=== PATIENT | female | born 1960 | race Caucasian/White ===

== ENCOUNTER 2018-04-21 12:16 | Emergency (ER) | payer BC ==
[2018-04-21 13:08] VITALS: BP 139/65
--- NOTE | 2018-04-21 13:28 | UC ---
Respiratory Complaint HPI - HPI Summary HPI Summary: Pt c/o URI like symptoms of cough, bronchospasm, nasal congestion and malaise X 2 weeks. Cough worsens in recumbent position. - History of Current Complaint Chief Complaint: UCRespiratory Stated Complaint: COUGH,SORE THROAT Time Seen by Provider: 04/21/18 13:13 Hx Obtained From: Patient ?: No Onset/Duration: Gradual Onset, Lasting Weeks, Still Present Timing: Constant Severity Initially: Mild Severity Currently: Mild Pain Intensity: 0 Character: Cough: Nonproductive Aggravating Factors: Deep Breaths, Recumbent Position Alleviating Factors: Nothing Associated Signs And Symptoms: Positive: URI, Nasal Congestion Related History: Seasonal Allergies - Risk Factors Pulmonary Embolism Risk Factors: Negative Cardiac Risk Factors: Negative Pseudomonas Risk Factors: Negative - Allergies/Home Medications Allergies/Adverse Reactions: Allergies Allergy/AdvReac Type Severity Reaction Status Date / Time No Known Allergies Allergy Verified 04/21/18 13:09 Home Medications: Home Medications Loratadine 10 mg PO DAILY 04/21/18 [History Confirmed 04/21/18] Omeprazole CAP* [Prilosec CAP* 20 MG] 20 mg PO DAILY 04/21/18 [History Confirmed 04/21/18] PMH/Surg Hx/FS Hx/Imm Hx Previously Healthy: Yes - Surgical History Surgical History: None - Social History Occupation: Employed Full-time Lives: With Family Alcohol Use: None Substance Use Type: None Smoking Status (MU): Never Smoked Tobacco Have You Smoked in the Last Year: No Review of Systems Constitutional: Chills, Fatigue Skin: Negative Eyes: Negative ENT: Sinus Congestion Respiratory: Cough Cardiovascular: Negative Gastrointestinal: Negative Genitourinary: Negative Motor: Negative Neurovascular: Negative Musculoskeletal: Negative Neurological: Negative Psychological: Negative Is Patient Immunocompromised?: No All Other Systems Reviewed And Are Negative: Yes Physical Exam Triage Information Reviewed: Yes Appearance: Well-Appearing Vital Signs: Initial Vital Signs Temp 97.6 F 04/21/18 13:03 Pulse 68 04/21/18 13:03 Resp 16 04/21/18 13:03 BP 139/65 04/21/18 13:03 Pulse Ox 98 04/21/18 13:03 Vital Signs Reviewed: Yes Eye Exam: Normal ENT: Positive: Nasal congestion Dental Exam: Normal Neck exam: Normal Respiratory Exam: Other Respiratory: Positive: Normal breath sounds Cardiovascular Exam: Normal Musculoskeletal Exam: Normal Neurological Exam: Normal Psychological Exam: Normal Skin Exam: Normal UC Diagnostic Evaluation - Laboratory O2 Sat by Pulse Oximetry: 98 Respiratory Course/Dx - Differential Dx/Diagnosis Differential Diagnosis/HQI/PQRI: Bronchitis, Influenza Provider Diagnoses: bronchitis Discharge - Sign-Out/Discharge Documenting (check all that apply): Patient Departure All imaging exams completed and their final reports reviewed: No Studies - Discharge Plan Condition: Stable Disposition: HOME Prescriptions: Azithromycin TAB* [Zithromax TAB (Z-THELMA) 250 mg #6 tabs] 2 tab PO .TODAY, THEN 1 DAILY #1 thelma Benzonatate CAP* [Tessalon 100 MG CAP*] 100 mg PO Q8H PRN #30 cap PRN Reason: Cough predniSONE TAB* [Deltasone 20 MG TAB*] 20 mg PO DAILY #4 tab Patient Education Materials: Acute Bronchitis (ED) Forms: *Work Release Referrals: [facility] [Outside] - If Needed No Primary Care Phys,NOPCP [Primary Care Provider] - - Billing Disposition and Condition Condition: STABLE Disposition: Home
== END 2018-04-21 13:34 | disposition home or self-care (01) ==
LOC: UCCORT 12:16
DX: J40 Bronchitis, not specified as acute or chronic (principal)
CPT/HCPCS: 99202; G0463

== ENCOUNTER 2018-12-03 13:59 | Emergency (ER) | payer BC ==
[2018-12-03 14:29] VITALS: BP 139/81
--- NOTE | 2018-12-03 15:00 | UC ---
Knee Pain HPI - HPI Summary HPI Summary: 58 year old female with h/o left knee pain, prior occurence ~ 2 years ago, similar symptoms, seen by Ortho, given hinged knee brace, no imaging, does not know diagnosis. ~ 1 week ago after increased movement/ moving furniture, spring cleaning, patient states knee started to ache. today while walking heard a "pop" with severe increased pain, came in for eval. Denies prior X- ray. no other complaints. Pain worst posterior, medially. constant pain, worse with bending. - History of Current Complaint Chief Complaint: UCLowerExtremity Stated Complaint: LT KNEE PAIN Time Seen by Provider: 12/03/18 14:19 Hx Obtained From: Patient Hx Last Menstrual Period: 2-3 yrs ?: No Onset/Duration: Sudden Onset, Lasting Days, Worse Since - worse today Severity Initially: Severe Severity Currently: Severe Pain Intensity: 5 Pain Scale Used: 0-10 Numeric Character: Sharp, Dull, Aching Aggravating Factor(s): Movement Alleviating Factor(s): Rest Associated Signs And Symptoms: Positive: Swelling Able to Bear Weight: Yes - Allergies/Home Medications Allergies/Adverse Reactions: Allergies Allergy/AdvReac Type Severity Reaction Status Date / Time hay fever Allergy Sneezing Uncoded 12/03/18 14:19 Home Medications: Home Medications Acetaminophen [Tylenol Arthritis] 650 mg PO TID PRN 12/03/18 [History Confirmed 12/03/18] Naproxen Sodium [Aleve] 220 mg PO BID PRN 12/03/18 [History Confirmed 12/03/18] Trolamine Salicylate/Aloe Vera [Aspercreme/Aloe] 10 % EX DAILY PRN 12/03/18 [ History Confirmed 12/03/18] PMH/Surg Hx/FS Hx/Imm Hx Previously Healthy: Yes - Surgical History Surgical History: Yes Surgery Procedure, Year, and Place: navel cyst age 15 yrs; tubal ligation 1985 - Family History Known Family History: Positive: Non-Contributory - Social History Alcohol Use: None Substance Use Type: None Smoking Status (MU): Never Smoked Tobacco Have You Smoked in the Last Year: No Review of Systems All Other Systems Reviewed And Are Negative: Yes Constitutional: Positive: Negative Musculoskeletal: Positive: Arthralgia, Calf Tenderness, Decreased ROM, Myalgia Is Patient Immunocompromised?: No Physical Exam Triage Information Reviewed: Yes Appearance: Well-Appearing, Well-Nourished, Pain Distress - mild Vital Signs: Initial Vital Signs Temp 98.1 F 12/03/18 14:23 Pulse 67 12/03/18 14:23 Resp 18 12/03/18 14:23 BP 139/81 12/03/18 14:23 Pulse Ox 100 12/03/18 14:23 Vital Signs Reviewed: Yes Eyes: Positive: Conjunctiva Clear Musculoskeletal: Positive: Other: - L knee- + aries, latearlly, + TTP MJL, posterior knee, calf. no IT band, MCL, LCL tenderness. + mild patellar grind , minimal EF, no erythema. no lax, mild pain with akilah/ basilio stressing. PT 2+ Neurological Exam: Normal Psychological Exam: Normal Skin Exam: Normal Knee Pain Course/Dx - Course Course Of Treatment: radiograph- mild OA. possible meniscal tear, follow up with ortho - Continue knee brace - Alleve twice daily x 5 days - Follow up with orthopedics within 3-5 days for repeat eval - Ice, Elevate - Odessa as needed every 6 hours for severe pain - WOrk note given - Differential Dx/Diagnosis Differential Diagnosis/HQI/PQRI: Cellulitis, Fracture (Closed), Fracture (Open) , Tendonitis Provider Diagnosis: Left knee injury Discharge - Sign-Out/Discharge Documenting (check all that apply): Patient Departure All imaging exams completed and their final reports reviewed: Yes - Discharge Plan Condition: Good Disposition: HOME Prescriptions: Hydrocodone/Acetaminophen [Odessa 5-325 Tablet] 1 each PO Q6H PRN #10 tablet MDD 4 PRN Reason: Pain Patient Education Materials: R.I.C.E. Treatment (ED), Meniscus Tear (ED) Forms: *Work Release Referrals: No Primary Care Phys,NOPCP [Primary Care Provider] - Nilo Truong MD [Medical Doctor] - Lisa Camarena PA [Physician Ed Special Education Teacher] - Additional Instructions: - Continue knee brace - Alleve twice daily x 5 days - Follow up with orthopedics within 3-5 days for repeat eval - Ice, Elevate - Odessa as needed every 6 hours for severe pain - Billing Disposition and Condition Condition: GOOD Disposition: Home
== END 2018-12-03 15:18 | disposition home or self-care (01) ==
LOC: UCCORT 13:59
DX: S80.912A Unspecified superficial injury of left knee, initial encounter (principal); X50.0XXA Overexertion from strenuous movement or load, initial encounter; Y93.E9 Activity, other interior property and clothing maintenance; Y92.019 Unspecified place in single-family (private) house as the place of occurrence of the external cause; M79.10 Myalgia, unspecified site; J30.1 Allergic rhinitis due to pollen
CPT/HCPCS: 99212; G0463

== ENCOUNTER 2019-01-20 06:34 | Day surgery (SDC) | payer BC ==
[~2019-01-20 06:34] MED LIST: Buffered Lidocaine 1% SYRIN* 1 ML/SYRINGE INTRADERM ONE; Dexamethasone IV* 4 MG/ML 1 ML (4 MG) IV SLOW PU ONE; Dexamethasone IV* 4 MG/ML 1 ML (4 MG) ONE; Famotidine IV* 10 MG/ML 2 ML (20 mg) IV ONE; Famotidine IV* 10 MG/ML 2 ML (20 mg) ONE; Lactated Ringers 1000 ML Bag* 1,000 ML IV SCH
[2019-01-20] MEDS ORDERED: ceFAZolin 2 GM in NS PREMIX(*) 2 GM/100 ML BAG IVPB ONE (06:45)
[2019-01-20] MEDS ORDERED: Ropivacaine 0.2% * 2 MG/ML VIAL ONE (06:56)
[2019-01-20] MEDS ORDERED: Lidocaine 1% w EPI 1:200,000* 30 ML VIAL ONE (06:57)
[2019-01-20] MEDS ORDERED: Rocuronium* 10 MG/ML VIAL ONE (07:14)
[2019-01-20] MEDS ORDERED: Propofol* 10 MG/ML 20 ML BTL ONE (07:15)
[2019-01-20] MEDS ORDERED: fentaNYL* 50 MCG/ML 2 ML VIAL (100 MCG VIAL) ONE ×2 (07:16→08:10)
[2019-01-20] MEDS ORDERED: Ondansetron INJ* 2 MG/ML VIAL ONE (07:16)
[2019-01-20] MEDS ORDERED: Lidocaine 2% PF * 5 ML VIAL ONE (07:19)
[2019-01-20] MEDS ORDERED: Ketorolac INJ* 30 MG/ML 1 ML VIAL ONE (07:21)
[2019-01-20] MEDS ORDERED: Neostigmine Methylsulfate* 3 MG/3 ML SYRINGE ONE (08:15)
[2019-01-20] MEDS ORDERED: Glycopyrrolate IV* 0.2 MG/ML 1 ML VIAL ONE (08:15)
[2019-01-20] MEDS ORDERED: DiMENhydriNATE IV* 50 MG/ML VIAL IV PUSH PRN (09:15)
[2019-01-20] MEDS ORDERED: Naloxone* 0.4 MG/ML 1 ML VIAL IV PRN (09:15)
[2019-01-20] MEDS ORDERED: fentaNYL* 50 MCG/ML 2 ML VIAL (100 MCG VIAL) IV PRN (09:15)
--- NOTE | 2019-01-20 10:39 | OP ---
DATE OF OPERATION: 01/20/19 - [facility] DATE OF : 62 ATTENDING SURGEON: Neema Green MD VIDEO SURVEILLANCE TECHNICIAN: UZAIR Gaviria. Full Stack Net Developer was needed for the entirety of the case for positioning, retraction, and utilized throughout all portions of the case due to the patient's size and because of the complexity of the case that was planned. PRE-OP DIAGNOSIS: Left knee medial meniscus retear. POST-OP DIAGNOSIS: Left knee intact root, but fraying as well as medial femoral condyle chondrosis. OPERATIVE PROCEDURE: 1. Left knee arthroscopy with partial medial meniscectomy. 2. Chondroplasty of medial femoral condyle. 3. Synovectomy of the anterior medial and lateral knee. COMPLICATIONS: None. ESTIMATED BLOOD LOSS: Minimal. INDICATIONS: Lilo Brunson is a 58-year-old female who has had persistent knee pain. She has catching and locking of the knee. She was diagnosed with a root tear. We discussed options including partial meniscectomy as well as root repair. She elected to proceed. OPERATIVE NOTE: The patient was greeted in the preoperative area by the attending surgeon. The correct extremity was marked and consent was confirmed. The patient was brought to the operating suite where she was placed in the supine position on the operating table. She then underwent general anesthesia and endotracheal intubation. She was positioned properly in the bed. An unsterile tourniquet was placed high on the left leg. A lateral post was positioned. The leg was then prepped and draped in the usual sterile fashion with a preprep of chlorohexidine soap and alcohol wipe and a final prep of chloroprep. After appropriate surgical pause indicating site, side, and procedure, an 11 blade was used to make the anterior lateral portal. The scope was inserted and the knee and the joint was examined. There were abundant synovitic changes about the knee and the ACL and PCL were intact. The anterior medial portal was then made using an 18-gauge needle for localization. The shaver was used to debride the abundant synovitis was present. There was a plica medially and laterally. These were debrided back using the eleonora and electrocautery device to maintain hemostasis at all times. The medial and lateral gutters were examined and found to have no loose bodies. The patellofemoral joint was examined and found to have minimal chondral changes. Grade 0-1 changes. The medial femoral condyle had small focal areas of grade 3 and 4 changes with unstable flaps. The remainder of the medial femoral condyle had grade 0 and 1 changes. The medial plateau had grade 0-1 changes. The medial meniscus was examined and there was a tear of the root of the meniscus. There is a small area of it still attached. The small unstable flap was debrided back using eleonora and biters. A small chondroplasty was done of the medial femoral condyle. Attention was directed to the lateral compartment. The knee was placed in figure 4 position. Lateral meniscus had no obvious tearing or fraying. Lateral femoral condyle had grade 0 changes of the lateral plateau had grade 1 changes. Once the synovectomy and medial meniscectomy were complete, the knee was thoroughly lavaged and removed any loose debris. The wounds were copiously irrigated. The portals were closed with 3-0 nylon. Sterile dressings were applied. The knee was superficially and intra-articularly injected with ropivacaine. She was awoken from anesthesia and transferred to the PACU in stable condition. Postoperative plan: She will be weightbearing as tolerated with crutches for the first 3-5 days. She will be range of motion as tolerated. We will discharge her on pain medication. DVT prophylaxis was considered but deferred due to no previous personal or family history. I will see the patient back in 10-14 days. [id number]/[facility] #: [id number] [place]
[2019-01-20 11:37] VITALS: BP 125/59
== END 2019-01-20 10:28 | disposition home or self-care (01) ==
LOC: OREAST 06:34
PROVIDERS: ATTEND Orthopaedic Surgery
DX: S83.242A Other tear of medial meniscus, current injury, left knee, initial encounter (principal); M93.862 Other specified osteochondropathies, left lower leg; X58.XXXA Exposure to other specified factors, initial encounter; Y92.9 Unspecified place or not applicable; I10 Essential (primary) hypertension; K21.9 Gastro-esophageal reflux disease without esophagitis; Z68.41 Body mass index [BMI] 40.0-44.9, adult
CPT/HCPCS: J0690; J1100; J1885; J2001; J2405; J2704; J2710; J2795; J3010

== ENCOUNTER 2019-05-23 16:30 | Emergency (ER) | payer SELFPAY ==
[2019-05-23 16:44] VITALS: BP 140/82
--- NOTE | 2019-05-23 17:00 | ED ---
Throat Pain/Nasal Congestion - HPI Summary HPI Summary: 58 yr old with the complaint of sore throat, runny nose, post nasal drip, sinus pressure, and coughing as well as right ear pain. Onset over the past 4-5 days. No fever. - History of Current Complaint Chief Complaint: UCGeneralIllness Time Seen by Provider: 05/23/19 16:52 - Allergies/Home Medications Allergies/Adverse Reactions: Allergies Allergy/AdvReac Type Severity Reaction Status Date / Time hay fever Allergy Sneezing Uncoded 05/23/19 16:40 Home Medications: Home Medications D-Methorphan/PE/Acetaminophen [Daytime Cold-Flu Relief Softgl] 2 tab PO ONCE [History Confirmed 05/23/19] PMH/Surg Hx/FS Hx/Imm Hx Endocrine/Hematology History: Denies: Hx Bone Marrow Disease, Hx Diabetes, Hx Sickle Cell Disease, Hx Thyroid Disease, Hx Anemia Cardiovascular History: Reports: Hx Hypertension - NOT ON MEDS, DOES NOT HAVE PCP, Hx Valvular Heart Disease - MITRAL VALVE REGURGITATION PER PT-NO MEDS Denies: Hx Pacemaker/ICD, Other Cardiovascular Problems/Disorders Respiratory History: Denies: Hx Asthma, Hx Sleep Apnea, Other Respiratory Problems/Disorders GI History: Reports: Hx Gastroesophageal Reflux Disease - TAKES PRILOSEC Denies: Hx Cirrhosis, Hx Crohn's Disease, Hx Hiatal Hernia, Hx Irritable Bowel, Hx Jaundice, Hx Ulcer, Other GI Disorders History: Denies: Hx Dialysis, Hx Kidney Infection, Hx Kidney Stones, Hx Renal Disease , Other Problems/Disorders Musculoskeletal History: Reports: Hx Arthritis - PER MRI , UNDER LEFT KNEE CAP Denies: Hx Bursitis, Hx Tendonitis, Other Musculoskeletal History Sensory History: Reports: Hx Contacts or Glasses - GLASSES Denies: Hx Cataracts, Hx Glaucoma, Hx Hearing Aid Opthamlomology History: Reports: Hx Contacts or Glasses - GLASSES Denies: Hx Cataracts, Hx Glaucoma Neurological History: Denies: Other Neuro Impairments/Disorders Psychiatric History: Denies: Hx Panic Disorder - Cancer History Hx Chemotherapy: No - Surgical History Surgery Procedure, Year, and Place: navel cyst age 15 yrs. tubal ligation 1985. L meniscal repair 2019 Hx Anesthesia Reactions: No Infectious Disease History: Yes Infectious Disease History: Reports: Hx Tuberculosis - in high school Denies: Hx Hepatitis, Traveled Outside the [place] in Last 30 Days - Family History Known Family History: Positive: Non-Contributory - Social History Occupation: Employed Full-time Alcohol Use: None Substance Use Type: Reports: None Smoking Status (MU): Never Smoked Tobacco Have You Smoked in the Last Year: No Review of Systems Constitutional: Negative Positive: Ear Ache, Nasal Discharge Positive: Cough All Other Systems Reviewed And Are Negative: Yes Physical Exam Triage Information Reviewed: Yes Vital Signs On Initial Exam: Initial Vitals Temp Pulse Resp BP Pulse Ox 98.1 F 75 18 140/82 98 05/23/19 16:41 05/23/19 16:41 05/23/19 16:41 05/23/19 16:41 05/23/19 16:41 Vital Signs Reviewed: Yes Appearance: Positive: Well-Appearing, No Pain Distress Skin: Positive: Warm, Skin Color Reflects Adequate Perfusion Head/Face: Positive: Normal Head/Face Inspection Eyes: Positive: EOMI ENT: Positive: Pharyngeal erythema, Nasal congestion, TM red - right, Sinus tenderness Respiratory/Lung Sounds: Positive: Clear to Auscultation, Breath Sounds Present Cardiovascular: Positive: RRR. Negative: Murmur Abdomen Description: Negative: Distended Musculoskeletal: Positive: Strength/ROM Intact Neurological: Positive: Sensory/Motor Intact, Alert, Oriented to Person Place, Time, CN Intact II-III, Normal Gait, Speech Normal Psychiatric: Positive: Normal Diagnostics - Vital Signs Vital Signs Temp Pulse Resp BP Pulse Ox 05/23/19 16:41 98.1 F 75 18 140/82 98 - Laboratory Lab Statement: Any lab studies that have been ordered have been reviewed, and results considered in the medical decision making process. EENT Course/Dx - Course Course Of Treatment: 58 yr old with right OM. Rx with Amox. - Diagnoses Provider Diagnoses: Right otitis media Discharge ED - Sign-Out/Discharge Documenting (check all that apply): Patient Departure All imaging exams completed and their final reports reviewed: No Studies - Discharge Plan Condition: Good Disposition: HOME Prescriptions: Amoxicillin PO (*) [Amoxicillin 500 MG CAP*] 500 mg PO TID #30 cap Patient Education Materials: Ear Infection (ED), Hypertension (ED) Forms: *Work Release Referrals: [facility] [Outside] - 2 Days No Primary Care Phys,NOPCP [Primary Care Provider] - - Billing Disposition and Condition Condition: GOOD Disposition: Home
== END 2019-05-23 17:05 | disposition home or self-care (01) ==
LOC: UCCORT 16:30
DX: H66.91 Otitis media, unspecified, right ear (principal); R09.82 Postnasal drip; J02.9 Acute pharyngitis, unspecified; I10 Essential (primary) hypertension; K21.9 Gastro-esophageal reflux disease without esophagitis; R09.89 Other specified symptoms and signs involving the circulatory and respiratory systems; R05 Cough; Z79.899 Other long term (current) drug therapy
CPT/HCPCS: 99212; G0463